=== PATIENT | female | born 1980 | race Hispanic/Latino ===

== ENCOUNTER 2017-04-06 00:24 | Inpatient (IN) | payer OTHER ==
[~2017-04-06] VITALS: Ht 160 cm; Wt 93.4 kg
[~2017-04-06 00:24] MED LIST: FERR159T PO; PREN-105 PO
[2017-04-06] MEDS ORDERED: Oxytocin 30 Units/500 mL LR 30 UNITS in IV Premix 1 EACH IV PRN ×3 (07:05→19:15)
[2017-04-06] MEDS ORDERED: Lactated Ringer's 1,000 ML IV PRN (08:23)
[2017-04-06] MEDS ORDERED: Carboprost 250 mCg/mL Inj IM PRN ×2 (08:25→19:15)
[2017-04-06] MEDS ORDERED: Oxytocin 10 Unit/mL Inj IM PRN ×2 (08:25→19:15)
[2017-04-06] MEDS ORDERED: fentaNYL-PF 50 mCg/mL 2 mL Inj IVPUSH PRN ×2 (08:25→16:55)
[2017-04-06] MEDS ORDERED: Hemorrhage Kit, Post Partum XX ONE ×2 (08:25→19:15)
[2017-04-06] MEDS ORDERED: Methylergonovine 0.2 mg/mL Inj IM PRN ×2 (08:25→19:15)
[2017-04-06] MEDS ORDERED: Ondansetron 2 mg/mL 2 mL Inj IVPUSH PRN ×2 (08:25→16:55)
[2017-04-06] MEDS ORDERED: Sodium Chloride LOK Flush 10 mL Syringe IVFLUSH PRN (08:25)
[2017-04-06] MEDS: Lactated Ringer's 1,000 ML IV SCH ×7 (09:35→22:41)
[2017-04-06 10:02] LABS: Mean Corpuscular Hemoglobin 29.1 pg (27.0-35.0); Mean Corpuscular Volume 87.7 fL (81-100)
[2017-04-06] MEDS ORDERED: fentaNYL 2 mCg/mL-Bupivicaine 0.125% 100 mL Premix EPIDURAL ONE (16:40)
[2017-04-06] MEDS ORDERED: EPHEDrine Sulfate 50 mg/mL Inj IVPUSH PRN (16:55)
[2017-04-06] MEDS ORDERED: Atropine 1 mg/10 mL (Code) Syringe IVPUSH PRN (16:55)
[2017-04-06] MEDS ORDERED: Lactated Ringer's 500 ML IV ONE (16:55)
[2017-04-06] MEDS ORDERED: fentaNYL 2 mCg/mL-Bupiv 0.125% 100 ML EPIDURAL SCH (16:55)
--- NOTE | 2017-04-06 17:01 | PCM.HPANE ---
Patient Data Date of Service: Apr 06, 2017 Surgeon Admitting Provider:Joby Leal MD Attending Provider:Joby Leal MD Primary Care Physician:[facility] Other Provider:Melanie Sierra Anesthesia Reason for Visit Induction INDUCTION Ht/WT & BMI Body Mass Index Allergies Coded Allergies: No Known Allergies (Verified Allergy, Unknown, 01/24/16) Past Anesthesia History Anesthesia History: Denies:: Abnormal Airway, Anesthesia Reactions, Difficult Intubation, Fam Anesthesia Reaction, Fam Malignant Hypertherm, Malignant Hyperthermia Diabetes History Hx Diabetes?: No MRSA MRSA: No Medications Reported Medications Ferrous Sulfate-Expunged Drug, Do Not Renew! (Iron-Expunged Drug, Do Not Renew!) 159 Mg Tablet.er159 Mg PO DAILY 08/11/12 VITS-Expunged Drug, Do Not Renew! ( FORMULA-Expunged Drug, Do Not Renew!)1 Each Tablet1 Each PO DAILY 08/11/12 History History of ENT Problems?: No HEENT History: Denies:: Abnormal Airway Cataracts Difficult Intubation Dysphagia Glaucoma Hearing Problem Sinus Problem TMJ Denture Type: None Teeth Condition: Within Normal Limits Hx of Heart Problems?: No Cardiovascular History: Denies:: AICD Abdominal Aortic Aneurism Atrial Fibrillation Cardiac Surgery Chest Pain Congestive Heart Failure Edema Heart Murmur Hypertension Irregular Heartbeat Pacemaker Rheumatic Fever Thrombophlebitis Valvular Heart Disease Hx of Respiratory Problem?: Yes Respiratory History: Positive for:: Asthma Denies:: COPD Chest Surgery Cough Dyspnea Emphysema Hemoptysis Oxygen Administration Pneumonia Pulmonary Embolism Tuberculosis Use of C-PAP Machine Other History/Comment Very mild asthma. No inhaler use recently. No steroids. Hx Neurologic Problems?: No Neurological History: Denies:: Alzheimer's Disease CVA Dementia Dizziness Headaches Multiple Sclerosis Parkinson's Disease Seizures Hx of GI Problems?: No Hx of Problems?: No Genitourinary History: Denies:: HX of Hemodialysis Kidney Stones Urinary Tract Infection HX of Peritoneal Dialysis: No Female Hx: Positive for:: Currently Denies:: Endometriosis Pelvic Inflammatory Problems with Breasts? Skin History: Denies:: History Skin Disorders? Pressure Ulcers Hx Musculoskeletal Problems?: No Musculoskeletal History: Denies:: Back Injury Degenerative Joint Joint Replacement Musculoskeletal Trauma Systemic Lupus Hx of Psycho/Social Problems?: No Psycho Social History: Denies:: Anxiety Bipolar Disorder Hx Depression Suicide Attempt Hx Surgeries?: Yes (cholecystectomy) Hx Any Other Health Problems?: No Other History: Denies:: Cancer Endocrine Disease Hospitalization Thyroid Disease History Blood Transfusions: Denies:: Blood Transfuse Reaction Blood Transfusions Hx Diabetes: No Hx Alcohol Use: No Smoking Status: Never Smoker Have You Smoked inLast 12 mo: No Stop/Bang Treated for Sleep Apnea?: No Do You Have a CPAP Machine?: No HANDY Risk Assessment: Low Risk, <3 Yes Risk Assessment Category Category 1A: Patient has history of documented sleep apnea, and HAS NOT received any narcotic, sedative or anesthesia administration during this stay. Category 1B: Patient has history of documented sleep apnea, and HAS received any narcotic , sedative or anesthesia administration during this stay Category 2: Patient has SUSPECTED Obstructive Sleep Apnea, and HAS received any narcotic , sedative or anesthesia administration during this stay. Category 3: Patient has SUSPECTED Obstructive Sleep Apnea and HAS NOT received narcotic, sedative or anesthesia administration during this stay. Category 4: Outpatient in Procedural Areas with known sleep apnea or who screen positive for High Risk via the STOP/BANG questionnaire. Exam Exam General Appearance: Alert, Oriented X3, Cooperative, No Acute Distress HEENT/AIRWAY: MP 2 Meds/Labs/Diagnostics Admission Meds Current Medications Lactated Ringer's (Lr) 1,000 ml @ 125 mls/hr Q8H IV Last administered on 16:49; Start 04/06/17 at 07:04 Nystatin (Mycostatin Oint) 1 applic BID TOPICAL Last administered on 04/06/17 13:42; Start 04/06/17 at 13:15; Stop 04/12/17 at 20:31 Labs Test 04/06/17 09:00 White Blood Count 5.6th/mm3 (3.8-10.1) Red Blood Count 3.50mil/mm3 (3.90-5.20) Hemoglobin 10.2g/dL (12.0-15.6) Hematocrit 30.7% (35.0-46.0) Mean Corpuscular Volume 87.7fL (81-100) Mean Corpuscular Hemoglobin 29.1pg (27.0-35.0) Mean Corpuscular Hemoglobin Concent 33.2% (32.0-37.0) Red Cell Distribution Width 13.6% (12.3-15.4) Platelet Count 148bil/L (150-400) Plan Impression Patient chart reviewed, patient interviewed and anesthestic plan with risks, benefits, and alternatives discussed, and informed consent obtained. NPO per Anesth. Guidelines: Yes ASA Physical Status: ASA2 Mod Systemic Disease Anesthetic Plan: Epidural Bene/Risks/Altern/Consents: Yes HP Complete Prior to Induction: Yes Kalyan Shelton MD Apr 06, 2017 17:01
[2017-04-06] MEDS ORDERED: Witch Hazel-Glycerin Pads TOPICAL PRN (19:15)
[2017-04-06] MEDS ORDERED: LANOlin HPA 7 Gm Ointment TOPICAL PRN (19:15)
[2017-04-06] MEDS ORDERED: Benzocaine (Dermoplast) 20% 60 Gm Spray TOPICAL PRN (19:15)
[2017-04-07 06:55] LABS: Mean Corpuscular Hemoglobin 29.2 pg (27.0-35.0); Mean Corpuscular Volume 88.1 fL (81-100)
[2017-04-07] MEDS: Ascorbic Acid 500 mg Tablet PO SCH ×2 (08:30→17:57)
--- NOTE | 2017-04-07 09:35 | PCM.HPOB ---
Subjective Date of Service: Apr 06, 2017 Referring Provider: Admitting Physician: Joby Leal MD Primary Care Physician: [facility] Attending Physician: Joby Leal MD Chief Complaint Presented for scheduled induction of labor. HISTORY OF PRESENTING ILLNESS: This is a 36-year-old, 8, para 3-0-4-3, at 40 weeks and 2 days with expected date of delivery of April 04, 2017, dated by last menstrual period and consistent with a 23 week ultrasound. Here for induction of labor for advanced maternal age and glucose intolerance in . Failed induction last week. The patient had elevated 1 hour glucose tolerance test. Three hour glucose tolerance test was within normal limits except for one reading. Glucose monitoring during within normal limits except for one reading was in 150s. The patient presented today for scheduled induction of labor with no complaint. The patient reports good movements. No vaginal bleeding. No regular contractions and no loss of fluid. complicated with: 1. Late transfer of care from [place] at 29 weeks gestation. 2. History of previous delivery for heart rate abnormality and labor remote from delivery and failure to progress. The patient had history of two vaginal deliveries before the last section. The patient desires trial of labor after section. Consent was signed on February 22, 2017. Risks and benefits and alternatives of trial of labor after section were discussed with the patient in detail and compared to risk and benefits and alternatives of elective repeat section. The patient desires trial of labor after section. 3. Elevated 1 hour glucose tolerance test. Three hours was within normal limits except for one abnormal reading and patient monitored her glucose at home, was within normal limits except for one abnormal reading of 154, one hour postprandial. 4. Anemia during the . 5. 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 Repeat Pap smear within normal limits and HPV negative in August 2016. Plan is to repeat Pap smear . 6. Advanced maternal age. Cell-free DNA test negative for aneuploidy. 7. Mild intermittent asthma. 8. Possible Zika exposure. Normal scan by MFM. Anatomy scan was initially limited. The scan was cleared via MFM except the spine was not well visualized. 9. complicated with borderline polyhydramnios. Last RACHEAL, March 31, 2017, was 23 cm GYNECOLOGIC HISTORY: Menarche at age 13. Regular menstrual cycle on control pills. Denies history of sexually transmitted infections. PAST OBSTETRIC HISTORY: First was 1998 and delivered via spontaneous vaginal delivery at 42 weeks gestation under epidural anesthesia. Outcome is a female infant, 7 pounds 5 ounces delivered at [facility] with no complication. Delivery was induced. The 2nd was in 2000, delivered via spontaneous vaginal delivery at 42 weeks gestation under epidural anesthesia. Outcome is a male , 7 pounds 9 ounces at [facility] with no complication. Delivery was induced. Third was 2009, spontaneous complete at 8 weeks gestation. Fourth was 2010, spontaneous complete at 7 weeks gestation. Fifth was 2011, spontaneous complete at approximately 3 weeks gestation. No complications. No medication was needed during any of her spontaneous miscarriages. The 6th was 2012, delivered via primary delivery at 42 weeks gestation under epidural anesthesia. Outcome is female , 7 pounds, 2 ounces, delivered at [facility]. Indication for delivery was nonreassuring heart tones remote from delivery. Failure to progress. The 7th was 2015, spontaneous miscarriage, was a complete at 8 weeks gestation with no complications and no need for D and C. The 8th is the current . PAST MEDICAL HISTORY: Significant for asthma. PAST SURGICAL HISTORY: Cholecystectomy laparoscopic and delivery x1. LEEP in May 2016 for SLADE 2 after normal cytology Pap smear and positive HPV. SOCIAL HISTORY: Denies smoking, alcohol, or illicit drug abuse. MEDICATIONS: vitamins, iron, vitamin C, docusate sodium, and terconazole for Guillermina vaginitis. ALLERGIES: Denies known drug allergies. FAMILY HISTORY: Mother has hypertension, prediabetes, fibroid uterus status post hysterectomy, and history of appendicitis. Father has hypertension, prediabetic, cardiomegaly, angina and had a cardiac catheterization positive for blockage. Brother: Morbid obesity, diabetes and hypertension. Sister is healthy. Denies family history of cancer. REVIEW OF SYSTEMS: Eleven point review of systems negative except for the items in History of Presenting Illness and history of vaginal itching and active Guillermina vaginitis, on treatment. Allergy Coded Allergies: No Known Allergies (Verified Allergy, Unknown, 01/24/16) Exam Objective Vital signs stable. General: Alert, oriented to time, place, and person. Head is normocephalic, atraumatic. Neck is supple. Chest: Equal air entry bilaterally. No added sounds. Cardiovascular: S1 plus S2. Regular rate and rhythm. Abdomen: Gravid. No tenderness. Cervix is 1-1/2 cm,40% effaced, -3, soft, mid position. Cat score of 5. Labs/Diagnostics Additional Information labs: Blood type is O positive. Rubella immune. RPR nonreactive. Hepatitis B surface antigen nonreactive. HIV nonreactive. Antibody screening negative. AFP screening for open neural tube defect is negative. Cell-free DNA test is negative for aneuploidy. Pap smear within normal limits for cytology and HPV negative on September 01, 2016. Chlamydia and gonorrhea screening negative on March 15, 2017. Group B strep negative March 15, 2017. OB Intrapartum Assessment/Plan Assessment This is a 36-year-old, 8, para 3-0-4-3 at 40 weeks and 2 days gestation, dated by last menstrual period consistent with 23 week ultrasound, expected date of delivery is April 04, 2017. Here for induction of labor. complicated with advanced maternal age. Previous one delivery trial. Desires trial of labor after section. Borderline polyhydramnios. Last RACHEAL is 23 cm March 31, 2017. Mild intermittent asthma. Late transfer of care from [place] at 29 weeks. Possible Zika exposure. Workup was done in [place] and was negative as per patient history and normal anatomy scan per [facility]. Glucose intolerance during the . Does not meet the criteria for gestational diabetes. Normal growth. Last growth ultrasound at 36 weeks and 5 days, March 12, 2017: Estimated weight at 72 percentile. Abdominal circumference at 92 percentile. Anterior placenta with no previa. PLAN: Admission for induction of labor. Informed consent reviewed. All questions were answered. Failed balloon repining. Will start Pitocin. Last week: ASSESSMENT AND PLAN: The patient was discussed today with Dr. Alston, perinatologist at the [facility] Department in the [facility]. He saw the patient earlier in this . Discussed the plan for delivery. Delivery at 39 weeks was recommended in earlier consultation. Discussed mode of delivery with Dr. Alston today. The patient is interested in trial of labor after section. The patient is a good candidate for vaginal delivery after section for having a history of two vaginal deliveries before, followed by a section for indication, mainly for nonreassuring heart tones remote from delivery and concern of failure to progress. Dr. Alston clarified his consultation note that induction of labor with prostaglandin is contraindicated, though Pitocin induction is not contraindicated. Discussed this discussion with the patient today before starting induction of labor. Mechanical cervical ripening is not contraindicated with a previous history of section. That was discussed with the patient in detail. The patient was offered to proceed with induction today or to wait for 40 weeks gestation in a couple of days if labor does not start on its own, then will start induction next week, or to proceed with elective repeat section. The patient desires a trial of labor induction today with cervical ripening that was placed as in procedure details mentioned above. Joby Leal MD Apr 07, 2017 09:25
--- NOTE | 2017-04-07 09:39 | PCM.DIOB ---
Obstetrical Disch Instruction Date of Service: Apr 07, 2017 Dates of Hospitalization Date of Hospital Admission Apr 06, 2017 at 08:17 Providers Admitting Physician: Joby Leal MD Primary Care Physician: [facility] Attending Physician: Joby Leal MD Discharge Diagnosis Discharge Diagnosis Status post Chronic anemia and post post anemia Problems: Diet Discharge Diet: No restrictions Activity Discharge Activity-General: Pelvic Rest for 6 weeks (no sex, no douching and no tampon ), Balance rest and activity, No lifting >10 pounds for 4-6 weeks Dressing and Incisional Care Hygiene: May shower, DO NOT soak incision under water, NO bathtub, hot tub or whirlpool Follow Up Plan Follow-up Provider (F9): Joby Leal MD Follow-up appointment: Weeks (two) Call your provider for: Fever or Chills, Shortness of breath, Heavy vaginal bleeding, Heavy bleeding, Epigastric pain, Excessive constipation, Vaginal discomfort, Red painful breasts Joby Leal MD Apr 07, 2017 09:39
[2017-04-07] MEDS ORDERED: MYCO TOPICAL (12:02)
[2017-04-07] MEDS ORDERED: Ascorbic Acid PO (12:02)
[2017-04-07] MEDS ORDERED: FLUC150T48 PO (12:02)
[2017-04-07] MEDS ORDERED: IBUP-1827 PO (12:02)
[2017-04-07] MEDS ORDERED: DOCU-41 PO (12:03)
[2017-04-07] MEDS ORDERED: OXYC1TAB24 PO (12:03)
[2017-04-07] MEDS ORDERED: FERR-74 PO (12:03)
--- NOTE | 2017-04-07 12:08 | PCM.DC.OB ---
Obstetrical Discharge Summary Date of Service Apr 07, 2017 Date of hospital admission Apr 06, 2017 at 08:17 Date of Discharge: Apr 07, 2017 Providers Admitting Physician: Yonatan Brock MD Primary Care Physician: [facility] Attending Physician: Yonatan Brock MD Diagnosis at Time of Discharge 36 Y G8 now [id number] was admitted at 40w5 d gestation for induction of labor. . See delivery note for details. Discharge Diagnosis Discharge Diagnosis Status post on 04/06/17 with no complications. Chronic anemia and post post anemia Labs: Laboratory Tests 72 Hours Test 04/06/17 09:00 04/07/17 06:45 White Blood Count 5.6th/mm3 (3.8-10.1) 9.2th/mm3 (3.8-10.1) Red Blood Count 3.50mil/mm3 (3.90-5.20) 3.29mil/mm3 (3.90-5.20) Hemoglobin 10.2g/dL (12.0-15.6) 9.6g/dL (12.0-15.6) Hematocrit 30.7% (35.0-46.0) 29.0% (35.0-46.0) Mean Corpuscular Volume 87.7fL (81-100) 88.1fL (81-100) Mean Corpuscular Hemoglobin 29.1pg (27.0-35.0) 29.2pg (27.0-35.0) Mean Corpuscular Hemoglobin Concent 33.2% (32.0-37.0) 33.1% (32.0-37.0) Red Cell Distribution Width 13.6% (12.3-15.4) 13.6% (12.3-15.4) Platelet Count 148bil/L (150-400) 137bil/L (150-400) Discharge Condition: stable. Disposition: home. Diet Discharge Diet: No restrictions Activity Discharge Activity-General: Pelvic Rest for 6 weeks (no sex, no douching and no tampon ), Balance rest and activity, No lifting >10 pounds for 4-6 weeks Dressing and Incisional Care Hygiene: May shower, DO NOT soak incision under water, NO bathtub, hot tub or whirlpool Follow Up Plan Follow-up Provider (F9): Yonatan Brock MD Follow-up appointment: Weeks (two) Call your provider for: Fever or Chills, Shortness of breath, Heavy vaginal bleeding, Heavy bleeding, Epigastric pain, Excessive constipation, Vaginal discomfort, Red painful breasts Yonatan Brock MD Apr 07, 2017 09:39 Addendum: Yonatan Brock MD on 04/07/17 @ 12:03 Call your provider or go to the ER for: headache, change in vision, nausea/ vomiting or leg swelling, pain or change in color Problems: ([Ascorbic Acid]) 500 MG TABLET 500 MG PO DAILY Prescribed by: YONATAN BROCK MD Docusate Sodium (Colace) 100 Mg Capsule 100 MG PO BID PRN PRN For Constipation Prescribed by: YONATAN BROCK MD Ferrous Sulfate (Feosol) 325 Mg Tablet 325 MG PO DAILY Prescribed by: YONATAN BROCK MD Fluconazole (Diflucan) 150 Mg Tablet 150 MG PO ONCE Prescribed by: YONATAN BROCK MD Ibuprofen (Ibuprofen) 600 Mg Tablet 600 MG PO QID PRN PRN For Pain Prescribed by: YONATAN BROCK MD Nystatin (Nystatin) 20 Applic/15 Gm Oint 1 APPLIC TOPICAL BID Prescribed by: YONATAN BROCK MD VITS-Expunged Drug, Do Not Renew! ( FORMULA-Expunged Drug, Do Not Renew!) 1 Each Tablet 1 EACH PO DAILY (Reported) oxyCODONE-Acetaminophen 5-325 mg (oxyCODONE-Acetaminophen 5-325 mg) 1 Each Tablet 1-2 TAB PO Q4H PRN PRN For Pain Prescribed by: YONATAN BROCK MD Discontinued Medications Ferrous Sulfate-Expunged Drug, Do Not Renew! (Iron-Expunged Drug, Do Not Renew! ) 159 Mg Tablet.er 159 MG PO DAILY (Reported) Yonatan Brock MD Apr 07, 2017 12:08
--- NOTE | 2017-04-07 13:44 | OP ---
[address] [address] OPERATIVE REPORT PATIENT: TIFFANY PERRY : 1980 MR#: [id number] ADMIT: 04/06/2017 JOB ID: [id number] DATE OF SURGERY: 04/06/2017 SURGEON: Joby Leal MD [employer] TEAM LEADER: None. PREOPERATIVE DIAGNOSIS(ES): 1. Intrauterine at 40 weeks and 2 days gestation. 2. Previous delivery x1, desires trial of labor after section. 3. Advanced maternal age. 4. Borderline high amniotic fluid volume. 5. Borderline glucose tolerance. POSTOPERATIVE DIAGNOSIS(ES): 1. Intrauterine at 40 weeks and 2 days gestation. 2. Previous delivery x1, desires trial of labor after section. 3. Advanced maternal age. 4. Borderline high amniotic fluid volume. 5. Borderline glucose tolerance. PROCEDURE: Vaginal after section and repair of first-degree labial laceration on the left side. ESTIMATED BLOOD LOSS: 300 mL. COMPLICATIONS: None. OUTCOME: Female infant delivered in cephalic presentation, in right occiput anterior position with no nuchal cord. Weight 3291 g equivalent to 7 pounds 4 ounces. Apgars 8 at one minute and 9 at 5 minutes. Placenta delivered spontaneously intact with three-vessel cord. Clear amniotic fluid. ANESTHESIA: Epidural. DETAILS OF PROCEDURE: This is a 36-year-old 8, para 3, was admitted for induction of labor at 40 weeks and 2 days gestation with expected date of delivery of April 04, 2017. Induction is for advanced maternal age and borderline high amniotic fluid. Induction of labor was attempted last week with Boo balloon that failed with no significant cervical change after 12 hours of Boo balloon. The patient was discharged home and readmitted today for induction., Trial of Pitocin was started. Cervix was 1, 40% and -3 at 18:25 a.m., April 06, 2017. The patient progressed in labor. Started to have regular contractions at about 14:20, then spontaneous rupture of membrane happened at 15:42 with clear fluid. Cervix was 3 cm, 85% effaced and -3. Patient progressed to 6 cm, 100% effaced at 17:35 and found to be completely dilated at about 18:35. The patient pushed effectively to deliver through two contractions. Delivered a female in right occiput anterior position with no nuchal cord over an intact perineum. Shoulders delivered without difficulty. Infant was placed at the maternal abdomen. Delayed cord clamp was performed after 1 minute. Apgars were 8 and 9 at one and five minutes, respectively. Placenta delivered spontaneously intact with a three-vessel cord. Fundal massage was performed. Pitocin was started. Bleeding was within normal limits. Total estimated blood loss is 300 mL. Perineum was examined and first-degree left labial laceration was repaired with a single interrupted stitch using 0-Vicryl without local anesthesia. Epidural was effective for pain control and for the repair. All instrument, needle and sponge counts were correct x2. Bleeding was within normal limits at the end of the procedure. Joby Carroll MD was present and scrubbed for the entire procedure.
[2017-04-07] MEDS: oxyCODONE-Acetamin 5-325 mg Tablet PO PRN ×2 (15:50→20:49)
[2017-04-08] MEDS: oxyCODONE-Acetamin 5-325 mg Tablet PO PRN (03:24)
== END 2017-04-08 09:24 | disposition home or self-care (01) | DRG 560 ==
LOC: FBC 08:17
PROVIDERS: ADMIT Obstetrics & Gynecology; ATTEND Obstetrics & Gynecology
PROC: 10E0XZZ Delivery of Products of Conception, External Approach (ICD-10-PCS; principal; 2017-04-06)
PROC: 3E033VJ Introduction of Other Hormone into Peripheral Vein, Percutaneous Approach (ICD-10-PCS; 2017-04-06)
PROC: 0HQ9XZZ Repair Perineum Skin, External Approach (ICD-10-PCS; 2017-04-06)
DX: O34.219 Maternal care for unspecified type scar from previous cesarean delivery (principal); O99.814 Abnormal glucose complicating childbirth; N85.8 Other specified noninflammatory disorders of uterus; O70.0 First degree perineal laceration during delivery; Z3A.40 40 weeks gestation of pregnancy; Z37.0 Single live birth; O99.013 Anemia complicating pregnancy, third trimester; O99.03 Anemia complicating the puerperium

== ENCOUNTER → 2017-04-21 | Day surgery (SDC) | payer OTHER ==
[2017-04-21] VITALS (12 sets, daily range): BP systolic 97–124; BP diastolic 49–84; PULSE 61–79; RESP 10–16; O2SAT 93–100
[~2017-04-21] VITALS: Ht 160 cm; Wt 81.9 kg
[~2017-04-21] MED LIST changes: +Clindamycin Inj 900 MG in IV Premix 1 EACH IV ONE; +DOCU-41 PO; +Dexamethasone 4 mg/mL Inj IVPUSH PRN; +Dexamethasone 4 mg/mL Inj ONE; +EPHEDrine Sulfate 50 mg/mL Inj IVPUSH PRN; +FERR-74 PO; -FERR159T PO; +HYDROcodone-APAP 5-325 mg Tablet PO PRN; +Ketamine 10 mg/mL 20 mL Inj ONE; +Lactated Ringer's 1,000 ML IV ONE; +Lactated Ringer's 1,000 ML IV SCH; +Lactated Ringer's 500 ML IV PRN; +MetoCLOpramide 5 mg/mL 2 mL Inj IVPUSH PRN; +Ondansetron 2 mg/mL 2 mL Inj IVPUSH PRN; +Ondansetron 2 mg/mL 2 mL Inj ONE; +PNV1TABL9 PO; -PREN-105 PO; +Phenylephrine 10,000 mCg/mL Inj IVPUSH PRN; +Propofol 10,000 mCg/mL 20 mL Inj ONE; +calcium; +fentaNYL-PF 50 mCg/mL 2 mL Inj ONE
[2017-04-21] MEDS: Lactated Ringer's 1,000 ML IV SCH ×2 (07:15→08:29)
--- NOTE | 2017-04-21 08:13 | PCM.HPANE ---
Patient Data Surgeon Admitting Provider: Attending Provider:Filipe Huerta MD Primary Care Physician:Nasir Other Provider: Reason for Visit Accessory Breast In Female Ht/WT & BMI Height (Feet): 5 Height (Inches): 3 Weight (Kilograms): 81.9 Body Mass Index 31.00 Allergies Coded Allergies: No Known Allergies (Verified Allergy, Unknown, 04/14/17) Past Anesthesia History Anesthesia History: Denies:: Abnormal Airway, Anesthesia Reactions, Difficult Intubation, Fam Anesthesia Reaction, Fam Malignant Hypertherm, Malignant Hyperthermia Diabetes History Hx Diabetes?: No MRSA MRSA: No Medications Hypertension Medication: No Home Meds Incl Beta Suraj: No Active Scripts Docusate Sodium (Colace)100 Mg [id number] Mg PO BID PRN For Constipation #60 CAPSULE Ref 0 Prov:Joby Leal MD 04/07/17 Ferrous Sulfate (Feosol)325 Mg [id number] Mg PO DAILY #100 TABLET Ref 0 Prov:Joby Leal MD 04/07/17 Reported Medications Pnv Cmb#21/Iron/Folic Acid ( Complete Caplet)1 Each Tablet1 Each PO DAILY 04/14/17 [calcium] No Conflict CheckUnknown Dose DAILY 04/14/17 Discontinued Reported Medications VITS-Expunged Drug, Do Not Renew! ( FORMULA-Expunged Drug, Do Not Renew!)1 Each Tablet1 Each PO DAILY 08/11/12 Discontinued Scripts oxyCODONE-Acetaminophen 5-325 mg 1 Each Tablet1-2 Tab PO Q4H PRN For Pain #30 TABLET Ref 0 Prov:Joby Leal MD 04/07/17 Fluconazole (Diflucan)150 Mg [id number] Mg PO ONCE #1 TABLET Ref 0 Prov:Joby Leal MD 04/07/17 Ibuprofen 600 Mg [id number] Mg PO QID PRN For Pain #100 TABLET Ref 0 Prov:Joby Leal MD 04/07/17 [Ascorbic Acid] (Vitamin C)500 MG TABLET No Conflict [id number] Mg PO DAILY #100 Prov:Joby Leal MD 04/07/17 Nystatin 20 Applic/15 Gm Oint1 Applic TOPICAL BID #1 TUBE Prov:Joby Leal MD 04/07/17 History History of ENT Problems?: No HEENT History: Denies:: Abnormal Airway Cataracts Difficult Intubation Dysphagia Glaucoma Hearing Problem Sinus Problem TMJ Denture Type: None Teeth Condition: Within Normal Limits Other HEENT Pertinent History: upper braces, residual wire on bottom Hx of Heart Problems?: No Cardiovascular History: Denies:: AICD Abdominal Aortic Aneurism Atrial Fibrillation Cardiac Surgery Chest Pain Congestive Heart Failure Edema Heart Murmur Hypertension Irregular Heartbeat Pacemaker Rheumatic Fever Thrombophlebitis Valvular Heart Disease Hx of Respiratory Problem?: Yes Respiratory History: Positive for:: Asthma (minor hx as child ) Denies:: COPD Chest Surgery Cough Dyspnea Emphysema Hemoptysis Oxygen Administration Pneumonia Pulmonary Embolism Tuberculosis Use of C-PAP Machine Use of Inhalers / NEBS Hx Neurologic Problems?: No Neurological History: Denies:: Alzheimer's Disease CVA Dementia Dizziness Headaches Multiple Sclerosis Parkinson's Disease Seizures Hx of GI Problems?: Yes Hx of Problems?: No Genitourinary History: Denies:: HX of Hemodialysis Kidney Stones Urinary Tract Infection HX of Peritoneal Dialysis: No Female Hx: Denies:: Currently Endometriosis Pelvic Inflammatory Problems with Breasts? Skin History: Denies:: History Skin Disorders? Pressure Ulcers Hx Musculoskeletal Problems?: No Musculoskeletal History: Denies:: Back Injury Degenerative Joint Joint Replacement Musculoskeletal Trauma Systemic Lupus Hx of Psycho/Social Problems?: No Psycho Social History: Denies:: Anxiety Bipolar Disorder Hx Depression Suicide Attempt Hx Surgeries?: Yes (cholecystectomy, c section, labor delivery epidural, LEEP) Hx Any Other Health Problems?: Yes Other History: Denies:: Cancer (abnormal cells LEEP ) Endocrine Disease Hospitalization Thyroid Disease History Blood Transfusions: Positive for:: Accept Blood Products? Denies:: Blood Transfuse Reaction Blood Transfusions Hx Diabetes: No Hx Alcohol Use: NoHx Substance Use: No Smoking Status: Never Smoker Have You Smoked inLast 12 mo: No Stop/Bang S-Snoring: Do You Snore Loudly: No T-Tired: feel tired, fatigued: Yes O-Obsered: Observed not breath: No P-Blood Pressure: treated: No B- Body Mass Index > 35 kg/m2: No A- Age over 50: No N- Neck Large Circumference: No G- Gender Male: No HANDY Total Score: 1 HANDY Risk Assessment: Low Risk, <3 Yes Risk Assessment Category Category 1A: Patient has history of documented sleep apnea, and HAS NOT received any narcotic, sedative or anesthesia administration during this stay. Category 1B: Patient has history of documented sleep apnea, and HAS received any narcotic , sedative or anesthesia administration during this stay Category 2: Patient has SUSPECTED Obstructive Sleep Apnea, and HAS received any narcotic , sedative or anesthesia administration during this stay. Category 3: Patient has SUSPECTED Obstructive Sleep Apnea and HAS NOT received narcotic, sedative or anesthesia administration during this stay. Category 4: Outpatient in Procedural Areas with known sleep apnea or who screen positive for High Risk via the STOP/BANG questionnaire. Exam Exam Vital Signs Vital Signs Date Time Temp Pulse Resp B/P Pulse Ox O2 Delivery O2 Flow Rate FiO2 04/21/17 07:41 36.3 67 16 124/78 98 Room Air General Appearance: Alert, Oriented X3, Cooperative, No Acute Distress HEENT/AIRWAY: MP 2 Lungs: Clear to Auscultation, Normal Air Movement Heart: Exam Unremarkable, Regular Rate/Rhythm, No Murmurs/Rubs/Gallops Meds/Labs/Diagnostics Admission Meds Current Medications Lactated Ringer's (Lr) 1,000 ml @ 120 mls/hr Q8H20M IV Last administered on t 07:15; Start 04/21/17 at 05:00; Stop 04/21/17 at 13:19 Plan Impression Patient chart reviewed, patient interviewed and anesthestic plan with risks, benefits, and alternatives discussed, and informed consent obtained. NPO per Anesth. Guidelines: Yes ASA Physical Status: ASA1 Normal Healthy Anesthetic Plan: GA Bene/Risks/Altern/Consents: Yes HP Complete Prior to Induction: Yes Abdiel Al MD Apr 21, 2017 08:13
[2017-04-21] MEDS: fentaNYL-PF 50 mCg/mL 2 mL Inj IVPUSH PRN ×3 (10:01→10:36)
[2017-04-21] MEDS: HYDROmorphone 1 mg/mL Inj IVPUSH PRN ×2 (10:01→10:16)
--- NOTE | 2017-04-21 11:37 | PCM.ANEP1 ---
Post Anesthesia PACU Phase 1 Assessment Vital Signs Vital Signs Date Time Temp Pulse Resp B/P Pulse Ox O2 Delivery O2 Flow Rate FiO2 04/21/17 11:31 64 14 117/77 97 Room Air 04/21/17 10:58 78 14 116/72 96 Room Air 04/21/17 10:29 36.8 79 12 114/71 95 Room Air 04/21/17 10:27 61 12 112/67 93 Room Air 04/21/17 10:15 61 11 120/73 97 Room Air 04/21/17 10:09 62 12 119/74 96 Room Air 04/21/17 10:05 65 13 122/81 94 Room Air 04/21/17 09:55 67 15 123/84 100 Simple Mask 10 04/21/17 09:50 76 10 112/69 100 Simple Mask 10 04/21/17 09:45 65 13 97/52 100 Simple Mask 10 04/21/17 09:40 36.3 67 13 99/49 100 Simple Mask 10 04/21/17 07:41 36.3 67 16 124/78 98 Room Air Anesthetic Administered: GA Level of Alertness: Awake, talking STEWART's with Equal Strength: Yes Pain: No Nausea or Vomiting: No CV Function & Hydration Stable: Yes Airway Device: Oralpharangeal Airway Lungs: Clear to Auscultation, Normal Air Movement Dermatome Level: Full Sensation PACU Phase 2 Assessment Complications: No Follow up Care: No Patient Instructions Provided: N/A Abdiel Al MD Apr 21, 2017 11:37
--- NOTE | 2017-04-22 10:43 | OP ---
[address] [address] OPERATIVE REPORT PATIENT: TIFFANY PERRY : 1980 MR#: [id number] ADMIT: 04/21/2017 JOB ID: [id number] DATE OF SURGERY: PREOPERATIVE DIAGNOSIS(ES): 1. Right-sided accessory breast tissue with accessory nipple. 2. Left-sided accessory breast tissue with accessory nipple. POSTOPERATIVE DIAGNOSIS(ES): 1. Right-sided accessory breast tissue with accessory nipple. 2. Left-sided accessory breast tissue with accessory nipple. PROCEDURE: 1. Excision of right accessory breast tissue with overlying accessory nipple. 2. Excision of anterior left accessory nipple with accessory breast tissue. 3. Excision of axillary accessory breast tissue. SURGEON: Filipe Huerta MD CUT OFF SAW OPERATOR METAL: Rohan Greenberg PA-C who was present for necessary retraction, exposure, and closure. ANESTHESIA: General anesthesia. COMPLICATIONS: None apparent. DRAINS: None. SPECIMEN: 1. Right accessory breast tissue to Pathology. 2. Left accessory nipple to Pathology. 3. Left accessory breast tissue to Pathology. ESTIMATED BLOOD LOSS: 20 cc. COMPLICATIONS: None apparent. INDICATIONS FOR PROCEDURE: This is a 36-year-old, female patient with bilateral history of breast tissue. Patient has a history of a waxing and waning of the size of the breast tissue with hormonal changes. Patient also reports through the accessory nipple. At this point, excision of the accessory breast tissue bilaterally are indicated. PROCEDURES AND FINDINGS: The patient was identified in the preoperative area. Surgical site was marked. With the patient in a sitting position and shoulders raised I marked the extent of the accessory breast tissue on the right side and left side. The right side the accessory breast tissue was approximately 2-3 cm. There is an overlying accessory nipple. was noted. On the left side. The patient has an accessory nipple along the anterior axillary line with minimal underlying breast tissue. The patient has a larger area of accessory breast tissue more posterior in the axilla that is approximately 5 cm in diameter. The extent of the second more posterior accessory breast tissue was marked. The patient was then taken back to the operating room and placed supine on the operating table. Appropriate time-outs were taken. General anesthesia was induced smoothly. The patient was then prepped and draped in the usual sterile manner. I first turned my attention to the right side. The ellipse was then designed to encompass the extent of the accessory breast tissue including the accessory nipple. Incision was made with a #10 blade. This was deepened down to the underlying subcutaneous tissue. Using electrocautery and palpation I dissected the accessory breast tissue away from the surrounding soft tissue. This was passed off to Pathology as a specimen with overlying skin and accessory nipple. The incision was reapproximated first with a layer of 3-0 Monocryl suture reapproximating the subcutaneous tissue. A layer of 3-0 Monocryl deep dermal sutures were then placed, followed by 4-0 Monocryl running subcuticular suture. I then turned my attention to the left side. I first turned my attention to the accessory nipple along the anterior axillary line. A small ellipse was then designed to encompass the accessory nipple. This was incised with a #10 blade down into the underlying subcutaneous tissue. The ellipse of skin was then removed with a small amount of underlying breast tissue. The incision was reapproximated first with a layer of 3-0 Monocryl deep dermal suture, followed by 4-0 Monocryl running subcuticular suture. The amount of breast tissue in this area is approximately 1 cm. I then turned my attention to the second larger area of accessory breast tissue in the axilla. An ellipse was designed over the central area of the accessory breast tissue approximately 2.5 to 3 cm in width. Incision was made with a #15 blade down into the subcutaneous tissue. The accessory breast tissue was then dissected free from the surrounding soft tissue along the breast capsule with electrocautery. This allowed me to remove the accessory breast tissue and overlying skin. The soft tissue and subcutaneous tissue was reapproximated first with a layer of 3-0 Monocryl simple interrupted sutures, a layer of 3-0 Monocryl deep dermal sutures were then placed, followed by 4-0 Monocryl running subcuticular suture. The patient tolerated the procedure well. Needle count, sponge count, instrument counts were correct at the end of the procedure. The patient was extubated and transported to recovery in stable condition. Of note, there are three areas of accessory breast tissue that was removed during this procedure one on the right and two on the left side that were sent off separately to Pathology.
--- NOTE | 2017-04-23 16:39 | PATH ---
SURGICAL PATHOLOGY Attending Physician:Filipe Huerta CASE STATUS: Signed Out PATIENT NAME: TIFFANY PERRY PID: [id number] : 1980 DATE COLLECTED:04/21/2017 18:49 SPECIMEN: 1: BREAST, NIPPLE BIOPSY 2: Breast, Biopsy - Excisional 3: Breast, Biopsy - Excisional CLINICAL HISTORY: ACCESSORY BREAST IN FEMALE 1). LEFT ACCESSORY NIPPLE 2). LEFT ACCESSORY BREAST TISSUE 3). RIGHT ACCESSORY BREAST TISSUE FINAL DIAGNOSIS: 1.LEFT ACCESSORY NIPPLE, EXCISION: - NIPPLE WITH UNDERLTING DUCTS WITH FEATURES OF LACTATIONAL CHANGE. - NO EVIDENCE OF NEOPLASM. 2.LEFT ACCESSORY BREAST TISSUE, EXCISION: - BENIGN BREAST PARENCHYMA WITH FEATURES OF LACTATIONAL CHANGE. 3.RIGHT ACCESSORY BREAST TISSUE, EXCISION: - NIPPLE AND BENIGN BREAST PARENCHYMA WITH FEATURES OF LACTATIONAL CHANGE. ICD10 N64.9 GROSS DESCRIPTION: The specimens are received in formalin, labeled with the patient's name, and sublabeled as the following: (1) left accessory nipple; (2) left accessory breast; (3) accessory breast tissue. (1) The specimen consists of an unoriented piece of adipose tissue (2.3 x 1.7 x 0.6 cm) partially covered by a nipple (1.1 x 0.6 x 0.5 cm). Adipose tissue is cruz-yellow lobular and homogenous. The nipple is dark brown and unremarkable. No nodules, masses or lesions are identified. Ink code: black-resection margin. Section code: (1A) adipose tissue with nipple, longitudinally trisected. Specimen entirely submitted. (2) The specimen consists of a piece of adipose tissue covered by skin (29 g, 9.2 x 2.8 x 2.6 cm). The skin is cruz smooth and shiny. Adipose tissue is cruz-yellow lobular and focally fibrous. No nodules, masses or lesions are identified. Ink code: black-resection margin. Section code: (2A-2B) adipose tissue with skin, serially sectioned, one full cross section submitted. Next (3) The specimen consists of a piece of adipose tissue covered by skin (10.5 g, 6.7 x 2.5 x 1.5 cm). The skin is brown smooth, shiny and contains an apparent dark brown nipple (0.7 x 0.5 x 0.2 cm) located 0.5 cm from the peripheral skin resection margin. The adipose tissue is cruz-yellow lobular and focally fibrous. No nodules, masses or lesions are identified. Ink code: black-resection margin. Section code: (3A, 3B) adipose tissue and skin comes to resection, customer contact representative. Note: Approximate total fixation time in formalin for all specimens-31 hours and 30 minutes calculated using a collection date of April 21, 2017 with no collection time given. 04/22/17 JM MICRO DESCRIPTION: See diagnosis. ICD-9 CODES: CPT CODES: 1: 21723 2: 25629 3: 90051 Electronically Signed Out Dwight Davis MD [facility] Pathology [facility] [address], [place] [address] Technical component performed at [facility], [address] [place] [address] Ave[address], [place], [address]
== END | disposition home or self-care (01) ==
LOC: SAS 07:00
PROVIDERS: ATTEND Plastic Surgery
DX: Q83.1 Accessory breast (principal); N64.89 Other specified disorders of breast
CPT/HCPCS: 19120; J1100; J1170; J2250; J2405; J2704; J3010; J3490; J7120